=== PATIENT | female | born 1965 | race Caucasian/White ===

== ENCOUNTER 2019-09-01 15:40 | Emergency (ER) | payer MEDICAID ==
[~2019-09-01] VITALS: Ht 154.9 cm; Wt 83.5 kg
[2019-09-01 15:45] VITALS: BP 155/97
--- NOTE | 2019-09-01 15:45 | NUR ---
PT AMBULATED TO BED WITH ASSIST, ACCOMPANIED BY FRIEND
--- NOTE | 2019-09-01 16:00 | NUR ---
54 Y/O FEMALE BIB FRIEND FOR RECHECK FOR MEDICAL CLEARANCE FOR A [facility]. PT WAS SEEN AT [facility] [place] YESTERDAY FOR DX TIA, WITH SLURRED SPEECH AND R SIDED WEAKNESS, BUT WITH IMPROVEMENT. PT DENIES NEW NEURO DEFICITS. REPORTS 810 R SIDED HEADACHE, BP 155/97. SLIGHT WEAKNESS/DRIFT NOTED ON RIGHT ARM. PATIENT IS ABLE TO AMBULATE WITH ASSISTANCE. ERMD MADE AWARE. SIDE [id number]. FRIEND AT BEDSIDE. WILL CONTINUE TO MONITOR. HX HTN, ASTHMA RX ASPIRIN, AMLODIPINE
--- NOTE | 2019-09-01 16:20 | NUR ---
Dr. Toth evaluating patient at bedside.
[2019-09-01] MEDS ORDERED: KETOROLAC 60 MG/2 ML VIAL IM ONE (16:30)
--- NOTE | 2019-09-01 16:50 | NUR ---
Patient discharged with v/s stable. Written and verbal after care instructions given and explained. Patient alert, oriented and verbalized understanding of instructions. Ambulatory with assistance . All questions addressed prior to discharge. ID band removed. Patient advised to follow up with PMD.. Patient educated on indication of medication including possible reaction and side effects. Opportunity to ask questions provided and answered.
[2019-09-01 16:51] VITALS: BP 135/79
== END 2019-09-01 16:50 | disposition home or self-care (01) ==
LOC: MED 15:40
DX: G45.9 Transient cerebral ischemic attack, unspecified (principal); F19.10 Other psychoactive substance abuse, uncomplicated; I10 Essential (primary) hypertension; J45.909 Unspecified asthma, uncomplicated; Z98.890 Other specified postprocedural states
CPT/HCPCS: 81002; 81025; 96372; 99283; J1885